=== PATIENT | female | born 1930 | race Caucasian/White ===

== ENCOUNTER 2017-10-08 16:14 | Emergency (ER) | payer MEDICARE ==
[~2017-10-08 16:14] MED LIST: AMLODIPINE BESY10 MG PO; AMLODIPINE5 MG; ASPI-COR81 M1 PO; CIPROFLOXACIN500 MG PO; COLACE100 MG PO; FLAGYL500 MG PO; HYDROCODONE BIT1 T11 PO; LISINOPRIL5 MG PO; LOVASTATIN20 MG PO; Lopressor25 MG PO; METOPROLOL TART50 M1 PO; METOPROLOL1 MG/ML PO; MICARDIS20 MG PO; MIRALAX17 GM/PACK PO; NORCO 325 MG-51 TAB PO; OMEPRAZOLE20 MG PO; PRILOSEC20 M1 PO; ROCALTROL0.5 MC1 PO; SYNTHROID0.137 MG PO; SYNTHROID0.15 MG PO; ZESTRIL20 MG PO; ZOFRAN ODT4 MG SL; ZYRTEC10 M3 PO
== END 2017-10-08 19:15 | disposition home or self-care (01) ==
LOC: ED 16:14
DX: S00.31XA Abrasion of nose, initial encounter (principal); R07.81 Pleurodynia; M25.561 Pain in right knee; Z90.710 Acquired absence of both cervix and uterus; Z90.89 Acquired absence of other organs; Z79.82 Long term (current) use of aspirin; Z79.899 Other long term (current) drug therapy; Z88.5 Allergy status to narcotic agent; W01.0XXA Fall on same level from slipping, tripping and stumbling without subsequent striking against object, initial encounter; Y93.89 Activity, other specified; Y92.22 Religious institution as the place of occurrence of the external cause; Y99.9 Unspecified external cause status

== ENCOUNTER 2018-02-03 08:07 | Emergency (ER) | payer MEDICARE ==
[~2018-02-03] VITALS: Wt 66.2 kg
== END 2018-02-03 09:29 | disposition home or self-care (01) ==
LOC: ED 08:07
DX: S01.81XA Laceration without foreign body of other part of head, initial encounter (principal); S60.221A Contusion of right hand, initial encounter; S09.90XA Unspecified injury of head, initial encounter; N18.9 Chronic kidney disease, unspecified; K21.9 Gastro-esophageal reflux disease without esophagitis; I10 Essential (primary) hypertension; E03.9 Hypothyroidism, unspecified; Z88.6 Allergy status to analgesic agent; Z79.899 Other long term (current) drug therapy; Z79.82 Long term (current) use of aspirin; W18.09XA Striking against other object with subsequent fall, initial encounter; Y93.89 Activity, other specified; Y92.89 Other specified places as the place of occurrence of the external cause; Y99.8 Other external cause status

== ENCOUNTER 2018-05-23 14:38 | Emergency (ER) | payer MEDICARE ==
[~2018-05-23] VITALS: Ht 160 cm; Wt 65.3 kg
== END 2018-05-23 16:50 | disposition home or self-care (01) ==
LOC: ED 14:38
DX: M25.552 Pain in left hip (principal); M25.551 Pain in right hip; M25.521 Pain in right elbow; M25.522 Pain in left elbow; R22.0 Localized swelling, mass and lump, head; K21.9 Gastro-esophageal reflux disease without esophagitis; E03.9 Hypothyroidism, unspecified; I12.9 Hypertensive chronic kidney disease with stage 1 through stage 4 chronic kidney disease, or unspecified chronic kidney disease; N18.9 Chronic kidney disease, unspecified; Z88.6 Allergy status to analgesic agent; Z79.899 Other long term (current) drug therapy; Z79.82 Long term (current) use of aspirin